=== PATIENT | male | born 1935 | race African-American/Black ===

== ENCOUNTER → 2016-08-08 | Outpatient (CLI) | payer OTHER ==
[2016-01-01 03:17] VITALS: BP 171/77
[~2016-08-08] MED LIST: BP MED; DIABETES MED; [UNRECOGNIZED DRUG - REMARK]
--- NOTE | 2016-08-08 13:16 | KCIC ---
Examination: CT chest without contrast. HISTORY History of long-term tobacco use, weight loss COMPARISON None available. TECHNIQUE Axial images were performed without contrast. Coronal sagittal reformats were performed. Exposure: One or more of the following dose reduction technique were utilized for this examination: 1. Automated exposure control. 2.Adjustment of MA and /or KV according to patient size. 3. Use of iterative reconstruction technique. Findings : The visualized thyroid gland grossly appears unremarkable. Central airways are patent. Minimal pericardial effusion identified. The heart size is normal. Mild coronary artery calcifications identified. Moderate aortic atherosclerosis. Minimal prominent appearing mediastinal lymph nodes identified with the largest measuring 1.8 centimeters in the pretracheal region. Diffuse centrilobular emphysematous changes identified in the bilateral lungs. Small 4 millimeter pulmonary nodule identified in the right middle lobe of the lung. Linear atelectasis /scarring changes identified in the bibasilar lungs. Moderate degenerative changes identified in the visualized thoracolumbar spine. The visualized non contrasted liver, spleen, adrenals grossly appears unremarkable. Partially visualized cystic structure identified in the midpole of the right kidney measuring 1.6 centimeters is difficult to characterize on this examination. IMPRESSION 1. Diffuse bilateral emphysematous changes identified in the lungs. 2. 4 millimeter pulmonary nodule identified in right middle lobe of the lung. Followup per Fleischner society guidelines. 3. Few prominent mediastinal lymph nodes identified, nonspecific. 4. Minimal pericardial effusion. Electronically signed by: Magdiel Spain (Aug 08, 2016 13:15:04)
== END | disposition home or self-care (01) ==
LOC: KCIC CT 11:42
PROVIDERS: ATTEND Family Medicine
DX: R63.4 Abnormal weight loss (principal); Z87.891 Personal history of nicotine dependence; J43.2 Centrilobular emphysema; R91.1 Solitary pulmonary nodule; R59.0 Localized enlarged lymph nodes; I31.3 Pericardial effusion (noninflammatory)
CPT/HCPCS: 71250

== ENCOUNTER 2017-09-17 12:32 | Emergency (ER) | payer OTHER ==
[2017-09-17] MEDS ORDERED: OXYMETAZOLINE 0.05% NASAL SPRAY 30ML BOTTLE. NS (12:47)
[2017-09-17] MEDS: OXYMETAZOLINE 0.05% NASAL SPRAY 30ML BOTTLE. NS (12:55)
[2017-09-17 13:32] LABS: ADD MAN DIFF? NO
[2017-09-17 13:36] LABS: BASO # 0.1 x10^3/uL (0.0-0.2); BASO % 1 % (0-3); EOS # 0.1 x10^3/uL (0.0-0.7); EOS % 2 % (0-3); HEMATOCRIT 36.8 % (39.0-53.0); HEMOGLOBIN 12.7 g/dL (13.0-17.5); LYMPH # 1.2 x10^3/uL (1.0-4.8); LYMPH % 16 % (24-48); MEAN CORPUSCULAR HEMOGLOBIN 31 pg (25-35); MEAN CORPUSCULAR HGB CONC 35 g/dL (31-37); MEAN CORPUSCULAR VOLUME 89 fL (79-100); MONO # 0.5 x10^3/uL (0.0-1.1); MONO % 7 % (0-9); NEUT # 5.6 x10^3uL (1.8-7.7); NEUT % 75 % (31-73); PLATELET COUNT 269 x10^3/uL (140-400); RED BLOOD COUNT 4.14 x10^6/uL (4.30-5.70); RED CELL DISTRIBUTION WIDTH 14.7 % (11.5-14.5); WHITE BLOOD COUNT 7.5 x10^3/uL (4.0-11.0)
[2017-09-17 13:43] LABS: INR 1.1 (0.8-1.1); PROTHROMBIN TIME PATIENT 13.2 SEC (11.7-14.0)
[2017-09-17 13:56] LABS: ANION GAP 6 (6-14); BLOOD UREA NITROGEN 14 mg/dL (8-26); CALCIUM 9.3 mg/dL (8.5-10.1); CARBON DIOXIDE 30 mmol/L (21-32); CHLORIDE 100 mmol/L (98-107); CREATININE 1.1 mg/dL (0.7-1.3); GFR 77.4; GLUCOSE 143 mg/dL (70-99); POTASSIUM 3.5 mmol/L (3.5-5.1); SODIUM 136 mmol/L (136-145)
== END 2017-09-17 15:00 | disposition home or self-care (01) ==
LOC: ER 12:32
DX: R04.0 Epistaxis (principal); I10 Essential (primary) hypertension; E11.9 Type 2 diabetes mellitus without complications
CPT/HCPCS: 30901; 36415; 80048; 85025; 85610; 99284-25

== ENCOUNTER 2017-09-18 06:36 | Emergency (ER) | payer OTHER | END 2017-09-18 07:47 | disposition home or self-care (01) | LOC: ER 06:36 | DX: J34.89 Other specified disorders of nose and nasal sinuses (principal); E11.9 Type 2 diabetes mellitus without complications; I10 Essential (primary) hypertension | CPT/HCPCS: 99283 ==

== ENCOUNTER 2017-09-19 19:27 | Emergency (ER) | payer OTHER ==
[2017-09-19] MEDS: TRANEXAMIC ACID 1,000 MG/10 ML VIAL. TOP (19:53)
[2017-09-19] MEDS: OXYMETAZOLINE 0.05% NASAL SPRAY 30ML BOTTLE. NS (19:53)
[2017-09-19] MEDS: LIDOCAINE 2%/EPI 1:100,000 20 ML VIAL. IJ (19:53)
[2017-09-19] MEDS: SILVER NITRATE STICK TP (20:21)
[2017-09-19] MEDS: NEOMY/BACITR/POLYMYXIN OINT PACKET. TP (20:46)
== END 2017-09-19 20:50 | disposition home or self-care (01) ==
LOC: ER 19:27
DX: R04.0 Epistaxis (principal); Z96.652 Presence of left artificial knee joint
CPT/HCPCS: 30901; 99284; J3490

== ENCOUNTER → 2017-10-03 | Outpatient (CLI) | payer OTHER | END | disposition home or self-care (01) | LOC: KCIC CT 12:28 | DX: J43.9 Emphysema, unspecified (principal); M47.894 Other spondylosis, thoracic region; R59.0 Localized enlarged lymph nodes; Z87.891 Personal history of nicotine dependence | CPT/HCPCS: 71250 ==

== ENCOUNTER → 2017-11-13 | Outpatient (CLI) | payer OTHER | END | disposition home or self-care (01) | LOC: PETSC 15:05 | DX: J43.9 Emphysema, unspecified (principal); I10 Essential (primary) hypertension; E11.9 Type 2 diabetes mellitus without complications; Z87.891 Personal history of nicotine dependence | CPT/HCPCS: 78815; A9552 ==

== ENCOUNTER → 2018-10-05 | Outpatient (CLI) | payer OTHER ==
[2017-09-19 20:20] VITALS: BP 147/70
[~2018-10-05] MED LIST changes: +CEPH-264 PO
--- NOTE | 2018-10-05 11:38 | KCIC ---
PQRS Compliance statement: One or more of the following individualized dose reduction techniques were utilized for this examination: 1. Automated exposure control. 2. Adjustment of the mA and/or kV according to patient size. 3. Use of iterative reconstruction technique. Indication:Lung nodule follow-up. Past Smoker. TECHNIQUE: CT chest without IV contrast with multiplanar reformats. COMPARISON: 10/03/2017 FINDINGS: Heart is normal in size. No pericardial or pleural effusion. No enlarged axillary adenopathy. Evaluation of hilar lymphadenopathy is limited due to lack of IV contrast. Mildly enlarged mediastinal lymph nodes noted, the largest measuring 1.9 x 1.3 cm, previously 1.8 x 1.3 cm. Subcarinal lymph node measures 3.1 x 1.4 similar, previously 2.5 x 1.4 cm. Moderate diffuse emphysema. Stable 3 mm nodule in the right lung apex (series 2 image 31). Stable 2 mm nodular opacity in the right middle lobe (series 2 image 158) . Right lower lobe pleural thickening is seen with scarring in the right lung base. New 7 mm nodular opacity in the central right upper lobe (series 2 image 89). Scarring or subsegmental atelectasis is seen in the lingula. Visualized noncontrast sections through the liver, spleen, pancreas, adrenals within normal limits. Diffusely patulous esophagus is seen. No suspicious bony lesion. IMPRESSION: 1. Stable previously seen nodules. New right upper lobe nodules/nodular opacity (7 mm). Follow-up CT chest in 4-6 months recommended. 2. Moderate emphysema. 3. Mediastinal lymph nodes with changes in size as described above likely reactive. Attention on follow-up. Electronically signed by: Dennis Allen DO (10/05/2018 11:35 AM) [facility]
== END | disposition home or self-care (01) ==
LOC: KCIC CT 10:15
PROVIDERS: ATTEND Family Medicine
DX: R91.1 Solitary pulmonary nodule (principal); J43.9 Emphysema, unspecified; R59.0 Localized enlarged lymph nodes; R91.8 Other nonspecific abnormal finding of lung field; Z72.0 Tobacco use
CPT/HCPCS: 71250

== ENCOUNTER → 2018-12-31 | Outpatient (CLI) | payer OTHER ==
[2017-09-19 20:20] VITALS: BP 147/70
[~2018-12-31] MED LIST changes: +IOHEXOL 240 MG/ML 50ML VIAL. PO ONE; +IOHEXOL 300 MG/ML 100ML VIAL. IV ONE
--- NOTE | 2019-01-01 08:25 | KCIC ---
CT of the abdomen and pelvis with contrast, 12/31/2018: HISTORY: Abdominal pain and weight loss Multidetector CT imaging was performed following oral and IV administration of contrast. Comparison is made to a study from 05/22/2015. The visualized portions of the lung bases demonstrate emphysematous changes with mild bronchiectasis and parenchymal scarring. There is pleural thickening posteriorly on the right with a probable trace amount of right-sided pleural fluid. These right posterior basilar pleural-parenchymal opacities have progressed slightly since 10/06/2018. There are couple of very tiny subcentimeter low-density lesions in the liver, best seen in the right lobe on images 23, 22 and 25 of series #2. These are too small to definitively characterize. There are not visible on the previous study, however, that may be on a technical basis. The liver is otherwise unremarkable. No gallbladder abnormality is seen. The pancreas shows no abnormality. The spleen is within normal limits in size. There are small bilateral renal cysts. The largest of these lies posteriorly on the right and measures 3 cm. The kidneys show no evidence of obstruction. No adrenal abnormality is detected. There is moderate aortic calcific plaquing without evidence of aneurysm. No abdominal or pelvic adenopathy is seen. The prostate gland is within normal limits in size. There is mild diffuse bladder wall thickening. The bowel loops are not dilated. No free fluid or free air is evident in the abdomen or pelvis. There is extensive hypertrophic degenerative change in the spine with bony bridging at multiple levels. There is a laminectomy defect in the lower lumbar spine. IMPRESSION: 1. Several tiny subcentimeter low-density lesions are now evident in the liver, too small to definitively characterize. Follow-up imaging is suggested to exclude a neoplastic etiology. 2. Mild diffuse bladder wall thickening raising the possibility of chronic bladder outlet obstruction versus cystitis. 3. Bilateral renal cysts. 4. Emphysema with bibasilar scarring, mild bronchiectasis and slight interval worsening of the right posterior basilar pleural-parenchymal opacities. PQRS Compliance Statement: One or more of the following individualized dose reduction techniques were utilized for this examination: 1. Automated exposure control 2. Adjustment of the mA and/or kV according to patient size 3. Use of iterative reconstruction technique Electronically signed by: Del Garcia MD (01/01/2019 8:22 AM) [facility]
== END | disposition home or self-care (01) ==
LOC: KCIC CT 11:38
PROVIDERS: ATTEND Family Medicine
DX: J47.9 Bronchiectasis, uncomplicated (principal); J43.8 Other emphysema; J98.4 Other disorders of lung; J92.9 Pleural plaque without asbestos; K76.9 Liver disease, unspecified; N28.1 Cyst of kidney, acquired
CPT/HCPCS: 74177; Q9966; Q9967

== ENCOUNTER → 2019-02-22 | Day surgery (SDC) | payer OTHER ==
[~2019-02-22] MED LIST changes: +ASPI81TA59 PO; +DICY10CA3 PO; -IOHEXOL 240 MG/ML 50ML VIAL. PO ONE; -IOHEXOL 300 MG/ML 100ML VIAL. IV ONE; +IV RINGERS,LACTATED 1000ML 1,000 ML IV SCH; +LIDOCAINE 2% PF 5 ML VIAL. ONE; +LOSA1TAB19 PO; +PROPOFOL 20 ML IV ONE
--- NOTE | 2019-02-22 14:54 | PDOC4 ---
PROCEDURE Procedure EGD/biopsies Indication: Upper abdominal pain, N, V Meds: per anesthesia Findings: E--Grade A esophagitis at 42cm. G--Multiple small pre-pyloric erosions, antral biopsies. D--Erosions, erythema, bulb. Deformity in distal bulb c/w prior ulcers. Second portion normal. Juan José. well. IMP: GERD Gastric/duodenal erosions Duodenal deformity. REC: Await biopsies. PPI Resume other meds, diet. F/u in 2 weeks. AYUSH CARTAGENA MD Feb 22, 2019 14:54
[2019-02-22 15:10] VITALS: BP 179/74
--- NOTE | 2019-02-24 16:17 | PATHOLOGY ---
[facility] Accession Number: [id number] . 01 Material submitted: . stomach - ANTRUM BIOPSY . 01 Clinical history: . Dyspepsia . 02 Diagnosis: Gastric biopsy, antrum: - Chronic gastritis, mild to moderate. ([facility] 02/25/2019) [facility]/02/24/2019 . 02 Comment: Sections of the gastric biopsy reveal segments of gastric antral and antral/body transition mucosa showing congestion and mild to moderate chronic inflammation. A properly controlled immunoperoxidase stain for Helicobacter is negative for Helicobacter organisms. ([facility] 02/25/2019) . Special stain performed: Immunoperoxidase for Helicobacter . 02 Electronically signed: . Aakash Brown MD, Pathologist NPI- [id number] . 01 Gross description: . Received in formalin labeled "Walker, Emigdio, antrum BX," is a single segment of george soft tissue measuring 0.6 cm in maximum dimension. The specimen is entirely submitted in cassette A1. ([facility]; 02/23/2019) TOB/TOB . 02 Pathologist provided ICD-10: K29.50 . 02 CPT . 000365, [id number] Specimen Comment: A courtesy copy of this report has been sent to Specimen Comment: [phone], . Specimen Comment: Report sent to / DR CASIANO Performed at: 01 [facility] [address] [place] [address], [place] [id number] MD Missael Parker MD Phone: [phone] Performed at: 02 [facility] [address], [place] [id number] MD Aakash Brown MD Phone: [phone]
== END ==
LOC: SURG 13:38
PROVIDERS: ATTEND Internal Medicine Gastroenterology
DX: K29.50 Unspecified chronic gastritis without bleeding (principal); K21.0 Gastro-esophageal reflux disease with esophagitis; K31.9 Disease of stomach and duodenum, unspecified; K26.9 Duodenal ulcer, unspecified as acute or chronic, without hemorrhage or perforation; F15.90 Other stimulant use, unspecified, uncomplicated; Z72.89 Other problems related to lifestyle; Z79.82 Long term (current) use of aspirin; Z87.891 Personal history of nicotine dependence
CPT/HCPCS: 43239; J2001; J2704

== ENCOUNTER → 2019-03-30 | Outpatient (CLI) | payer OTHER ==
[2019-02-22 15:10] VITALS: BP 179/74
[~2019-03-30] MED LIST changes: +ASPI-630 PO; +IOHEXOL 240 MG/ML 50ML VIAL. PO ONE; +IOHEXOL 300 MG/ML 100ML VIAL. IV ONE; -IV RINGERS,LACTATED 1000ML 1,000 ML IV SCH; -LIDOCAINE 2% PF 5 ML VIAL. ONE; +NITR0.4T22 SL; -PROPOFOL 20 ML IV ONE
--- NOTE | 2019-03-30 16:52 | KCIC ---
CT chest without contrast; CT abdomen pelvis with contrast Indication: Lung nodule, previous smoker; weight loss and abdominal pain, generalized pain, "gassy" feeling Technique: Noncontrast CT imaging was performed of the chest, multiplanar reconstruction images submitted. Postcontrast CT imaging was performed of the abdomen and pelvis, multiplanar reconstruction images submitted. Oral contrast was also given. One or more of the following individualized dose reduction techniques were utilized for this examination: 1. Automated exposure control 2. Adjustment of the mA and/or kV according to patient size 3. Use of iterative reconstruction technique. Comparison: December 31, 2018 CT abdomen pelvis exam; October 05, [address] exam; older chest CT available July 05, 2008 CHEST: FINDINGS: There is again fairly severe emphysema with upper zone predominance. Small right pleural effusion with adjacent mild pleural thickening is similar. There is no pneumothorax or new left pleural fluid. There is mild coronary calcification. Thoracic aortic caliber is within normal limits. There is mediastinal nodes, largest precarinal node about 1.2 cm short axis dimension overall similar in morphology and size. Subcarinal node about 1.4 cm short axis dimension is similar. Tiny 0.2 cm right middle lobe nodule image 12 series 6 is stable. Small 0.3 cm right middle lobe nodule image 47 series 6 is similar. Previously seen right upper lobe nodule which was new previously has resolved. There is mild thickening along the major fissures, likely component of mild atelectasis. No new suspicious pulmonary nodularity is identified. There is degenerative change of bilateral shoulders. IMPRESSION: 1. Previously seen right upper lobe pulmonary nodule has resolved, no new suspicious pulmonary nodularity, other small nodules stable. There is again emphysema with upper zone predominance. There is similar degree of mild pleural thickening and fluid of the posterior right hemithorax. Nonspecific mediastinal lymphadenopathy is stable. Abdomen pelvis: Findings: There is again hypodense lesion of the right kidney posteriorly with density measurements of a cyst 2 Hounsfield units, up to about 3.9 cm CC dimension. There is also small hypodense lesion of the anterior right kidney somewhat less apparent on this exam otherwise difficult to accurately characterize. Both kidneys enhance. There is similar degree of mild renal pelviectasis/extrarenal pelves greater on the right. There is again small hypodense lesion of the superior left kidney about 1.2 cm with density measurements of a cyst. There is no adrenal nodularity. A couple of previously suggested tiny hypodense foci of the right lobe liver are unchanged to less perceptible on this exam, on the order of 0.2 to 0.3 cm in size as seen on images 17 and 18 on today's exam series 3. No new focal abnormality is identified of the liver, spleen, pancreas. There is again visualization of the pancreatic duct. Gallbladder is present without obvious intraluminal abnormality by CT. There is density displacing adjacent contrast near the suspected ampulla in the left lateral aspect of the descending duodenum image 32 about 0.9 cm in size, no oral contrast on previous exam. Bowel is not significantly dilated. There is no free fluid or free air. Appendix caliber is upper limits of normal 0.6 cm without adjacent inflammatory change, some internal gas present. No significant inflammatory type change is seen about the bowel. There is multilevel lumbar facet degenerative change. 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 There has been posterior decompression of the inferior lumbar spine. There is some variable multilevel lumbar neural foramina compromise. IMPRESSION: 1. No significant inflammatory type change is identified about the bowel, no CT evidence of acute appendicitis. 2. There is appearance of density displacing adjacent contrast, protruding into the medial aspect of the descending duodenum near expected ampulla. There is no significant biliary ductal dilatation. However small mass in this region is not excludable better evaluated by endoscopy or MRCP. 3. There are again bilateral renal cysts. 4. Previously suggested tiny hypodense foci of the liver are similar to less perceptible on this exam, too small to accurately characterize. Electronically signed by: Oswaldo Beard MD (03/30/2019 4:49 PM) [facility]
== END | disposition home or self-care (01) ==
LOC: KCIC CT 08:30
PROVIDERS: ATTEND Internal Medicine Critical Care Medicine
DX: J43.9 Emphysema, unspecified (principal); J90 Pleural effusion, not elsewhere classified; I25.10 Atherosclerotic heart disease of native coronary artery without angina pectoris; R91.8 Other nonspecific abnormal finding of lung field; N28.1 Cyst of kidney, acquired; R59.0 Localized enlarged lymph nodes; N28.9 Disorder of kidney and ureter, unspecified; Z87.891 Personal history of nicotine dependence
CPT/HCPCS: 71250

== ENCOUNTER → 2019-03-30 | Outpatient (CLI) | payer OTHER ==
[2019-02-22 15:10] VITALS: BP 179/74
--- NOTE | 2019-03-30 16:52 | KCIC ---
CT chest without contrast; CT abdomen pelvis with contrast Indication: Lung nodule, previous smoker; weight loss and abdominal pain, generalized pain, "gassy" feeling Technique: Noncontrast CT imaging was performed of the chest, multiplanar reconstruction images submitted. Postcontrast CT imaging was performed of the abdomen and pelvis, multiplanar reconstruction images submitted. Oral contrast was also given. One or more of the following individualized dose reduction techniques were utilized for this examination: 1. Automated exposure control 2. Adjustment of the mA and/or kV according to patient size 3. Use of iterative reconstruction technique. Comparison: December 31, 2018 CT abdomen pelvis exam; October 05, [address] exam; older chest CT available July 05, 2008 CHEST: FINDINGS: There is again fairly severe emphysema with upper zone predominance. Small right pleural effusion with adjacent mild pleural thickening is similar. There is no pneumothorax or new left pleural fluid. There is mild coronary calcification. Thoracic aortic caliber is within normal limits. There is mediastinal nodes, largest precarinal node about 1.2 cm short axis dimension overall similar in morphology and size. Subcarinal node about 1.4 cm short axis dimension is similar. Tiny 0.2 cm right middle lobe nodule image 12 series 6 is stable. Small 0.3 cm right middle lobe nodule image 47 series 6 is similar. Previously seen right upper lobe nodule which was new previously has resolved. There is mild thickening along the major fissures, likely component of mild atelectasis. No new suspicious pulmonary nodularity is identified. There is degenerative change of bilateral shoulders. IMPRESSION: 1. Previously seen right upper lobe pulmonary nodule has resolved, no new suspicious pulmonary nodularity, other small nodules stable. There is again emphysema with upper zone predominance. There is similar degree of mild pleural thickening and fluid of the posterior right hemithorax. Nonspecific mediastinal lymphadenopathy is stable. Abdomen pelvis: Findings: There is again hypodense lesion of the right kidney posteriorly with density measurements of a cyst 2 Hounsfield units, up to about 3.9 cm CC dimension. There is also small hypodense lesion of the anterior right kidney somewhat less apparent on this exam otherwise difficult to accurately characterize. Both kidneys enhance. There is similar degree of mild renal pelviectasis/extrarenal pelves greater on the right. There is again small hypodense lesion of the superior left kidney about 1.2 cm with density measurements of a cyst. There is no adrenal nodularity. A couple of previously suggested tiny hypodense foci of the right lobe liver are unchanged to less perceptible on this exam, on the order of 0.2 to 0.3 cm in size as seen on images 17 and 18 on today's exam series 3. No new focal abnormality is identified of the liver, spleen, pancreas. There is again visualization of the pancreatic duct. Gallbladder is present without obvious intraluminal abnormality by CT. There is density displacing adjacent contrast near the suspected ampulla in the left lateral aspect of the descending duodenum image 32 about 0.9 cm in size, no oral contrast on previous exam. Bowel is not significantly dilated. There is no free fluid or free air. Appendix caliber is upper limits of normal 0.6 cm without adjacent inflammatory change, some internal gas present. No significant inflammatory type change is seen about the bowel. There is multilevel lumbar facet degenerative change. 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 There has been posterior decompression of the inferior lumbar spine. There is some variable multilevel lumbar neural foramina compromise. IMPRESSION: 1. No significant inflammatory type change is identified about the bowel, no CT evidence of acute appendicitis. 2. There is appearance of density displacing adjacent contrast, protruding into the medial aspect of the descending duodenum near expected ampulla. There is no significant biliary ductal dilatation. However small mass in this region is not excludable better evaluated by endoscopy or MRCP. 3. There are again bilateral renal cysts. 4. Previously suggested tiny hypodense foci of the liver are similar to less perceptible on this exam, too small to accurately characterize. Electronically signed by: Oswaldo Beard MD (03/30/2019 4:49 PM) [facility]-KCIC[facility]
== END | disposition home or self-care (01) ==
LOC: KCIC CT 08:35
PROVIDERS: ATTEND Family Medicine
DX: N20.0 Calculus of kidney (principal); J43.9 Emphysema, unspecified; J90 Pleural effusion, not elsewhere classified; I25.10 Atherosclerotic heart disease of native coronary artery without angina pectoris; R91.8 Other nonspecific abnormal finding of lung field; Z87.891 Personal history of nicotine dependence
CPT/HCPCS: 74177; 82565; Q9966; Q9967

== ENCOUNTER → 2019-04-12 | Day surgery (SDC) | payer OTHER ==
[~2019-04-12] MED LIST changes: +HYDROmorphone 2 MG/ML VIAL IV PRN; -IOHEXOL 240 MG/ML 50ML VIAL. PO ONE; -IOHEXOL 300 MG/ML 100ML VIAL. IV ONE; +IV RINGERS,LACTATED 1000ML 1,000 ML IV SCH; +LIDOCAINE 1% PF 2 ML VIAL. ID PRN; +MORPHINE SULFATE 2 MG/ML VIAL. IV PRN; +ONDANSETRON PF 4 MG/2 ML VIAL. IV PRN; +PROCHLORPERAZINE 10 MG/2 ML VIAL. IV PRN; +PROPOFOL 20 ML IV ONE; +fentaNYL PF VIAL 100 MCG/2 ML VIAL IV PRN
--- NOTE | 2019-04-12 15:31 | PDOC4 ---
PROCEDURE Procedure EGD/biopsy Indication: abnormal CT; query abnormality in duodenum. Meds: per anesthesia Findings: E--healed reflux at [facility]. G--Normal D--prominent papilla, otherwise normal; one biopsy taken to document normal. Juan José. well. IMP: Prominent major papilla; likely accounts for the CT finding. Did not appear adenomatous. Healed reflux. REC: Await biopsy. Continue meds and diet as before. F/u with me in 2 weeks. AYUSH CARTAEGNA MD Apr 12, 2019 15:31
[2019-04-12 16:02] VITALS: BP 127/59
== END ==
LOC: ENDOS 13:18
PROVIDERS: ATTEND Internal Medicine Gastroenterology
DX: K21.0 Gastro-esophageal reflux disease with esophagitis (principal); F15.90 Other stimulant use, unspecified, uncomplicated; Z72.89 Other problems related to lifestyle; Z87.891 Personal history of nicotine dependence; Z79.82 Long term (current) use of aspirin; Z96.60 Presence of unspecified orthopedic joint implant
CPT/HCPCS: 43239; 88305; J2704

== ENCOUNTER → 2020-04-06 | Outpatient (CLI) | payer MEDICARE, OTHER ==
[2019-04-12 16:02] VITALS: BP 127/59
[~2020-04-06] MED LIST changes: +CONTRAST GIVEN. MC PRN; -HYDROmorphone 2 MG/ML VIAL IV PRN; +IOHEXOL 240 MG/ML 50ML VIAL. PO ONE; +IOHEXOL 300 MG/ML 100ML VIAL. IV ONE; -IV RINGERS,LACTATED 1000ML 1,000 ML IV SCH; -LIDOCAINE 1% PF 2 ML VIAL. ID PRN; -MORPHINE SULFATE 2 MG/ML VIAL. IV PRN; -ONDANSETRON PF 4 MG/2 ML VIAL. IV PRN; -PROCHLORPERAZINE 10 MG/2 ML VIAL. IV PRN; -PROPOFOL 20 ML IV ONE; +TAMS0.4C97 PO; +[UNRECOGNIZED DRUG - CODE] MC; -fentaNYL PF VIAL 100 MCG/2 ML VIAL IV PRN
--- NOTE | 2020-04-06 19:37 | KCIC ---
EXAM: CT ABDOMEN/PELVIS WITH CONTRAST. HISTORY: Abdominal pain, weight loss. TECHNIQUE: Computed tomography of the abdomen and pelvis was performed after the intravenous administration of iodinated contrast. One or more of the following individualized dose reduction techniques were utilized for this examination: 1. Automated exposure control. 2. Adjustment of the mA and/or kV according to patient size. 3. Use of iterative reconstruction technique. COMPARISON: 03/30/2019. FINDINGS: Lung windows through the visualized portions of the bases reveal moderate centrilobular emphysema. There is bronchial wall thickening and mild bronchiectasis throughout the bases. There is a trace right pleural effusion. Bone windows reveal no suspicious lesions. There is ankylosis throughout the lower thoracic and lumbar spine. The sacroiliac joints are not ankylosed. The liver, gallbladder, adrenal glands and spleen are unremarkable. Right renal cysts measure up to 3.2 x 2.5 cm. Another at the left upper pole measures 1 cm. No pancreatic parenchymal mass is identified. There is a polypoid nodule in the region of the major papillae as seen on axial image 33 measuring 1.0 cm, versus volume averaging artifact. There is no vascular encasement or surrounding lymphadenopathy. The common duct is not dilated. There are no pathologically enlarged lymph nodes. There is moderate diffuse bladder wall thickening. The appendix is not inflamed. There is no small bowel obstruction. The stomach is unremarkable by CT. IMPRESSION: 1. 1 cm polypoid nodule in the region of the major papilla versus volume averaging artifact. ERCP could further exclude an ampullary lesion. No other pancreatic lesion is identified. No ductal dilatation. 2. At least moderate centrilobular emphysema. Bibasilar bronchiectasis. Correlate for chronic aspiration or other inflammatory etiologies. 3. Nonfocal bladder wall thickening suggests chronic outlet obstruction or inflammation. Electronically signed by: Frank Blankenship MD (04/06/2020 7:35 PM) [facility]
== END | disposition home or self-care (01) ==
LOC: KCIC CT 13:23
PROVIDERS: ATTEND Internal Medicine
DX: J43.2 Centrilobular emphysema (principal); N28.1 Cyst of kidney, acquired; J47.9 Bronchiectasis, uncomplicated; M43.25 Fusion of spine, thoracolumbar region
CPT/HCPCS: 74177; 82565; Q9966; Q9967

== ENCOUNTER 2020-04-29 10:47 | Emergency (ER) | payer MEDICARE, OTHER ==
[~2020-04-29] VITALS: Ht 182.9 cm; Wt 93.0 kg
[~2020-04-29 10:47] MED LIST changes: -CONTRAST GIVEN. MC PRN; -IOHEXOL 240 MG/ML 50ML VIAL. PO ONE; -IOHEXOL 300 MG/ML 100ML VIAL. IV ONE
[2020-04-29 11:00] VITALS: BP 148/66
[2020-04-29] MEDS ORDERED: OXYMETAZOLINE 0.05% NASAL SPRAY 30ML BOTTLE. NS ONE (11:00)
[2020-04-29] MEDS ORDERED: TRANEXAMIC ACID 1,000 MG/10 ML VIAL. TOP ONE (11:00)
[2020-04-29] MEDS ORDERED: ONDANSETRON ODT 4 MG TAB.RAPDIS. ONE (11:08)
[2020-04-29] MEDS ORDERED: ONDANSETRON ODT 4 MG TAB.RAPDIS. PO ONE (11:15)
--- NOTE | 2020-04-29 12:20 | PHYS DOC ---
Past Medical History Past Medical History: Diabetes-Type II, Hypertension Additional Past Medical Histor: NASAL BLEED (08/2017) Past Surgical History: Knee Replacement, Tonsillectomy, Other Additional Past Surgical Histo: L knee Smoking Status: Never Smoker Alcohol Use: None Drug Use: None General Adult EDM: Chief Complaint: NOSEBLEED HPI: HPI: History obtained for the patient. Patient is a 84-year-old male past medical history of hypertension and ubk-[id number] diabetes who presents with chief complaint of nosebleed. He states bleeding began 1 hour ago. He thinks it is coming from his right nostril. Denies any history of nosebleed. Does not take blood thinners. Denies falls or trauma. Denies any additional trauma. Denies any difficulty breathing. Denies any vomiting. No other complaints. Review of Systems: Review of Systems: Constitutional: Denies fever or chills. [] Eyes: Denies change in visual acuity. [] HENT: Positive for epistaxsis Respiratory: Denies cough or shortness of breath. [] Cardiovascular: Denies chest pain or edema. [] GI: Denies abdominal pain, nausea, vomiting, bloody stools or diarrhea. [] : Denies dysuria. [] Musculoskeletal: Denies back pain or joint pain. [] Integument: Denies rash. [] Neurologic: Denies headache, focal weakness or sensory changes. [] Endocrine: Denies polyuria or polydipsia. [] Lymphatic: Denies swollen glands. [] Psychiatric: Denies depression or anxiety. [] Heart Score: Risk Factors: Risk Factors: DM, Current or recent (<one month) smoker, HTN, HLP, family history of CAD, obesity. Risk Scores: Score 0 - 3: 2.5% MACE over next 6 weeks - Discharge Home Score 4 - 6: 20.3% MACE over next 6 weeks - Admit for Clinical Observation Score 7 - 10: 72.7% MACE over next 6 weeks - Early Invasive Strategies Current Medications: Current Medications Medications (Trade) Dose Ordered Sig/Janessa Start Time Stop Time Status Last Admin Dose Admin Ondansetron HCl (Zofran Odt) 4 mg 1X ONCE 04/29/20 11:15 04/29/20 11:16 DC 04/29/20 11:11 4 MG Oxymetazoline HCl (Afrin) 2 spray 1X ONCE 04/29/20 11:00 04/29/20 11:01 DC 04/29/20 11:02 2 SPRAY Tranexamic Acid (Cyklokapron) 1,000 mg 1X ONCE 04/29/20 11:00 04/29/20 11:01 DC 04/29/20 11:02 1,000 MG Allergies: Allergies: Allergies Coded Allergies Type Severity Reaction Last Updated Verified No Known Drug Allergies 04/12/19 No Physical Exam: PE: Constitutional: Well developed, well nourished, no acute distress, non-toxic appearance. [] HENT: Minimal bloody drainage in the posterior oropharynx. Unable to visualize any anterior bleeding. Eyes: PERRLA, EOMI, conjunctiva normal, no discharge. [] Neck: Normal range of motion, no tenderness, supple, no stridor. [] Cardiovascular:Heart rate regular rhythm, no murmur [] Lungs & Thorax: Bilateral breath sounds clear to auscultation [] Abdomen: Bowel sounds normal, soft, no tenderness, no masses, no pulsatile masses. [] Skin: Warm, dry, no erythema, no rash. [] Back: No tenderness, no CVA tenderness. [] Extremities: No tenderness, no cyanosis, no clubbing, ROM intact, no edema. [] Neurologic: Alert and oriented X 3, normal motor function, normal sensory function, no focal deficits noted. [] Psychologic: Affect normal, judgement normal, mood normal. [] Current Patient Data: Vital Signs: Vital Signs Date Time Temp Pulse Resp B/P (MAP) Pulse Ox O2 Delivery O2 Flow Rate FiO2 04/29/20 11:00 98.0 59 16 148/66 (93) 95 Room Air 98.0 EKG: EKG: [] Radiology/Procedures: Radiology/Procedures: [] Course & Med Decision Making: Course & Med Decision Making Pertinent Labs and Imaging studies reviewed. (See chart for details) [] Patient is an 84-year-old male who presents with chief complaint of nosebleed. He states it started 1 hour prior to arrival spontaneously. Does not take blood thinners. Upon initial inspection patient does have a mild amount of right nasal bleeding. No source of bleeding can be visualized. Patient was initially given Afrin cotton pledgets. Direct pressure was held for 20 minutes. Repeat assessment he still had some posterior oropharynx bloody drainage. Additional TXA soaked cotton pledgets were administered to the right nares. Direct pressure was applied for 20 to 30 minutes. On repeat assessment he never has any bleeding. The back of his throat is clear without bloody drainage. He was monitored without intervention for quite some time. He showed no signs of repeat bleeding. I do feel he is appropriate for discharge home. Return precautions discussed and understood. Stable for discharge. Dragon Disclaimer: Dragon Disclaimer: This electronic medical record was generated, in whole or in part, using a voice recognition dictation system. Departure Departure Impression: Primary Impression: Epistaxis Disposition: 01 DC HOME SELF CARE/HOMELESS Condition: STABLE Referrals: DARIEN CASIANO (PCP) Patient Instructions: Nosebleed Additional Instructions: Please follow-up with your primary care physician in the next 2 to 3 days. CRISTIAN WILKINS DO Apr 29, 2020 12:19
== END 2020-04-29 12:30 | disposition home or self-care (01) ==
LOC: ER 10:47
DX: R04.0 Epistaxis (principal); E11.9 Type 2 diabetes mellitus without complications; I10 Essential (primary) hypertension; Z98.890 Other specified postprocedural states; Z90.89 Acquired absence of other organs
CPT/HCPCS: 99284; J3490

== ENCOUNTER 2020-05-05 09:46 | Emergency (ER) | payer MEDICARE, OTHER ==
[~2020-05-05] VITALS: Ht 182.9 cm; Wt 93.0 kg
[2020-05-05 10:23] VITALS: BP 153/70
[2020-05-05] MEDS ORDERED: OXYMETAZOLINE 0.05% NASAL SPRAY 30ML BOTTLE. NS ONE (10:30)
--- NOTE | 2020-05-05 11:04 | PHYS DOC ---
Past Medical History Past Medical History: Diabetes-Type II, Hypertension Additional Past Medical Histor: NASAL BLEED (08/2017) Past Surgical History: Knee Replacement, Tonsillectomy, Other Additional Past Surgical Histo: L knee Smoking Status: Never Smoker Alcohol Use: None Drug Use: None General Adult EDM: Chief Complaint: NOSEBLEED HPI: HPI: Patient is a 64-year-old male who presents to the emergency room complaining of epistaxis from the right nare. This is his third nosebleed in the last week. He states the swelling started about an hour and half prior to arrival and is slowing down but he continues to feel it in the back of his throat. He denies any blood thinners. He does not have hypertension. He did have cauterization done to a broken blood vessel in his nose the first time this happened. Review of Systems: Review of Systems: Negative other than marked Heart Score: Risk Factors: Risk Factors: DM, Current or recent (<one month) smoker, HTN, HLP, family history of CAD, obesity. Risk Scores: Score 0 - 3: 2.5% MACE over next 6 weeks - Discharge Home Score 4 - 6: 20.3% MACE over next 6 weeks - Admit for Clinical Observation Score 7 - 10: 72.7% MACE over next 6 weeks - Early Invasive Strategies Current Medications: Current Medications Medications (Trade) Dose Ordered Sig/Janessa Start Time Stop Time Status Last Admin Dose Admin Oxymetazoline HCl (Afrin) 2 spray 1X ONCE 05/05/20 10:30 05/05/20 10:31 DC 05/05/20 10:30 2 SPRAY Allergies: Allergies: Allergies Coded Allergies Type Severity Reaction Last Updated Verified No Known Drug Allergies 04/12/19 No Physical Exam: PE: General: Awake, alert, NAD. Well Nourished, well hydrated. Cooperative HEENT: Atraumatic, EOMI, PERRL, airway patent, moist oral mucosa, right nare with minimal bleeding, left nare appears normal Neck: Supple, trachea midline Respiratory: CTA bilaterally, normal effort, no wheezing/crackles CV: RRR, no murmur, cap refill <2 GI: Soft, nondistended, nontender, no masses MSK: No obvious deformities Skin: Warm, dry, intact Neuro: A&O x3, speech NL, sensory and motor grossly intact, no focal deficits Psych: Normal affect, normal mood, not suicidal or homicidal Current Patient Data: Vital Signs: Vital Signs Date Time Temp Pulse Resp B/P (MAP) Pulse Ox O2 Delivery O2 Flow Rate FiO2 05/05/20 10:23 97.8 58 18 153/70 (97) 97 Room Air 97.8 EKG: EKG: [] Radiology/Procedures: Radiology/Procedures: [] Course & Med Decision Making: Course & Med Decision Making Pertinent Labs and Imaging studies reviewed. (See chart for details) Patient is an 84-year-old male who presents to the emergency room with a nosebleed. I discussed doing conservative treatment such as Afrin and pressure with the patient versus doing nasal packing. Patient would like to do nasal packing. Packing was placed without difficulty. Bleeding stopped after packing. I have discussed with him that it will need to be removed on Friday or Friday. He will follow-up for removal. Patient's test results and vitals while in the ED were fully reviewed and discussed with the patient. Patient is stable and at this time does not need admission to the hospital. We have discussed strict return precautions and the importance of following up with their Primary Care Physician. Patient stated understanding and was given an opportunity to ask any questions. Patient is in agreement with plan. Thee Disclaimer: Thee Disclaimer: This electronic medical record was generated, in whole or in part, using a voice recognition dictation system. Departure Departure Impression: Primary Impression: Epistaxis Disposition: 01 DC HOME SELF CARE/HOMELESS Condition: IMPROVED Referrals: UNKNOWN PCP NAME (PCP) Patient Instructions: Nosebleed Additional Instructions: Nasal packing will need to be removed Friday JENNIFER ACUÑA MD May 05, 2020 11:04
== END 2020-05-05 11:14 | disposition home or self-care (01) ==
LOC: ER 09:46
DX: R04.0 Epistaxis (principal); E11.9 Type 2 diabetes mellitus without complications; I10 Essential (primary) hypertension
CPT/HCPCS: 99282

== ENCOUNTER 2020-05-08 09:13 | Emergency (ER) | payer MEDICARE, OTHER ==
[~2020-05-08] VITALS: Ht 182.9 cm; Wt 100.0 kg
[2020-05-08 09:23] VITALS: BP 153/70
--- NOTE | 2020-05-08 09:54 | ED.ADGEN ---
Past Medical History Past Medical History: Diabetes-Type II, Hypertension Additional Past Medical Histor: NASAL BLEED (08/2017) Past Surgical History: Knee Replacement, Tonsillectomy, Other Additional Past Surgical Histo: L knee Smoking Status: Never Smoker Alcohol Use: None Drug Use: None General Adult EDM: Chief Complaint: NOSEBLEED HPI: HPI: Patient is an 84-year-old male who presents to the emergency room to get nasal packing taken out of his nose. He was packed for an obese [place] on Friday. He has not had any problems. Review of Systems: Review of Systems: Negative Allergies: Allergies: Allergies Coded Allergies Type Severity Reaction Last Updated Verified No Known Drug Allergies 04/12/19 No Physical Exam: PE: General: Awake, alert, NAD. Well Nourished, well hydrated. Cooperative HEENT: Atraumatic, EOMI, PERRL, airway patent, moist oral mucosa, packing in right nare without bleeding Skin: Warm, dry, intact Neuro: A&O x3, speech NL, sensory and motor grossly intact, no focal deficits Psych: Normal affect, normal mood, not suicidal or homicidal Current Patient Data: Vital Signs: Vital Signs Date Time Temp Pulse Resp B/P (MAP) Pulse Ox O2 Delivery O2 Flow Rate FiO2 05/08/20 09:23 97.6 65 18 153/70 (97) 97 Room Air 97.6 EKG: EKG: [] Heart Score: Risk Factors: Risk Factors: DM, Current or recent (<one month) smoker, HTN, HLP, family history of CAD, obesity. Risk Scores: Score 0 - 3: 2.5% MACE over next 6 weeks - Discharge Home Score 4 - 6: 20.3% MACE over next 6 weeks - Admit for Clinical Observation Score 7 - 10: 72.7% MACE over next 6 weeks - Early Invasive Strategies Radiology/Procedures: Radiology/Procedures: [] Course & Med Decision Making: Course & Med Decision Making Pertinent Labs and Imaging studies reviewed. (See chart for details) [] Dragon Disclaimer: Dragon Disclaimer: This electronic medical record was generated, in whole or in part, using a voice recognition dictation system. Departure Departure Impression: Primary Impression: Encounter for removal of nasal packing Disposition: 01 DC HOME SELF CARE/HOMELESS Condition: STABLE Referrals: DARIEN CASIANO (PCP) Patient Instructions: JENNIFER Nugent MD 19, 2020 09:54
== END 2020-05-08 10:01 | disposition home or self-care (01) ==
LOC: ER 09:13
DX: R04.0 Epistaxis (principal); E11.9 Type 2 diabetes mellitus without complications; I10 Essential (primary) hypertension; E66.9 Obesity, unspecified; Z68.29 Body mass index [BMI] 29.0-29.9, adult; Z98.890 Other specified postprocedural states; Z90.89 Acquired absence of other organs
CPT/HCPCS: 99281

== ENCOUNTER 2021-04-20 14:40 | Emergency (ER) | payer MEDICARE, OTHER ==
[~2021-04-20] VITALS: Ht 175.3 cm; Wt 90.0 kg
[2021-04-20 15:03] VITALS: BP 136/63
[2021-04-20] MEDS ORDERED: BACITRACIN TOPICAL OINT PACKET. TP ONE (15:12)
--- NOTE | 2021-04-20 15:33 | ED.ADGEN ---
Past Medical History Past Medical History: Diabetes-Type II, Hypertension Additional Past Medical Histor: NASAL BLEED (08/2017) Past Surgical History: Knee Replacement, Tonsillectomy, Other Additional Past Surgical Histo: L knee Smoking Status: Never Smoker Alcohol Use: None Drug Use: None General Adult EDM: Chief Complaint: NOSEBLEED HPI: HPI: Patient is a 85 year old male coming in for right-sided nosebleed. Patient states he has these yearly around this time of year. Has had nasal packing in the past and silver nitrate cautery. Denies any digital trauma. Does not take any blood thinners. No other complaints. Review of Systems: Review of Systems: All other systems within normal limits except for as noted in the HPI Current Medications: Current Medications Medications (Trade) Dose Ordered Sig/Janessa Start Time Stop Time Status Last Admin Dose Admin Bacitracin (Bacitracin Zinc Oint Pkt) 1 pkt STK-MED ONCE 04/20/21 15:12 04/20/21 15:12 DC Allergies: Allergies: Allergies Coded Allergies Type Severity Reaction Last Updated Verified No Known Drug Allergies 04/12/19 No Physical Exam: PE: Constitutional: Well developed, well nourished, no acute distress, non-toxic appearance. [] HENT: Normocephalic, atraumatic, bilateral external ears normal, nose normal, bleeding from right nare. On exam bleeding appears to be coming from the upper anterior lateral side of the nare. [] Eyes: PERRLA, conjunctiva normal, no discharge. [] Neck: No rigidity, supple, no stridor. [] Cardiovascular: Regular rate and rhythm, brisk cap refill [] Lungs & Thorax: Non labored symmetric respirations, no tachypnea or respiratory distress [] Abdomen: Soft, nondistended. Skin: Warm, dry, no erythema, no rash. [] Back: Unremarkable Extremities: No deformities, range of motion grossly intact, no lower extremity edema [] Neurologic: Alert and oriented X 3, no focal deficits noted. [] Psychologic: Affect normal, judgement normal, mood normal. [] EKG: EKG: [] Heart Score: C/O Chest Pain: No Risk Factors: Risk Factors: DM, Current or recent (<one month) smoker, HTN, HLP, family history of CAD, obesity. Risk Scores: Score 0 - 3: 2.5% MACE over next 6 weeks - Discharge Home Score 4 - 6: 20.3% MACE over next 6 weeks - Admit for Clinical Observation Score 7 - 10: 72.7% MACE over next 6 weeks - Early Invasive Strategies Radiology/Procedures: Radiology/Procedures: Attempted direct pressure, bleeding slowed. Discussed nasal packing with patient he agrees with plan. Had nasal packing before tolerated well. Nasal packing procedure: Merocel trimmed to appropriate size for nare. 0 silk suture was used through the and to make a retrieval string. Merocel was lubricated with antibiotic ointment and placed in the right nare. Expanded with 3 cc sterile saline. No complications, patient tolerated well, strings taped to patient's cheek [] Course & Med Decision Making: Course & Med Decision Making Pertinent Labs and Imaging studies reviewed. (See chart for details) [] Dragon Disclaimer: Dragon Disclaimer: This electronic medical record was generated, in whole or in part, using a voice recognition dictation system. Departure Departure Impression: Primary Impression: Epistaxis Disposition: HOME / SELF CARE / HOMELESS Condition: STABLE Referrals: DARIEN CASIANO (PCP) Patient Instructions: Nosebleed Additional Instructions: Moisten the nasal packing 3 times a day until was removed can use the saline flushes or water if you run out. Follow-up with your primary care provider or ENT for pack removal in 2 to 3 days. If you do not have an ear nose and throat doctor you can follow-up with Mary Jo Carpenter MD [address], [address] [place] [address] PRECIOUS GIL MD Apr 20, 2021 15:33
== END 2021-04-20 16:10 | disposition home or self-care (01) ==
LOC: ER 14:40
DX: R04.0 Epistaxis (principal); E11.9 Type 2 diabetes mellitus without complications; I10 Essential (primary) hypertension
CPT/HCPCS: 30901; 99284

== ENCOUNTER 2021-04-20 18:21 | Emergency (ER) | payer MEDICARE, OTHER ==
[~2021-04-20] VITALS: Ht 175.3 cm; Wt 90.9 kg
[2021-04-20 18:55] VITALS: BP 164/70
[2021-04-20] MEDS ORDERED: OXYMETAZOLINE 0.05% NASAL SPRAY 30ML BOTTLE. NS ONE (19:45)
[2021-04-20] MEDS ORDERED: BACITRACIN TOPICAL OINT PACKET. TP ONE (19:45)
[2021-04-20] MEDS ORDERED: 0.9 % SOD CHL for STERILE FIELD 10 ML DISP.SYRIN. ONE (20:06)
[2021-04-20] MEDS ORDERED: 0.9 % SOD CHL for STERILE FIELD 10 ML DISP.SYRIN. IV ONE (20:15)
--- NOTE | 2021-04-20 20:43 | PHYS DOC ---
Past Medical History Past Medical History: Diabetes-Type II, Hypertension Additional Past Medical Histor: NASAL BLEED (08/2017) Past Surgical History: Knee Replacement, Tonsillectomy, Other Additional Past Surgical Histo: L knee Smoking Status: Never Smoker Alcohol Use: None Drug Use: None General Adult EDM: Chief Complaint: NOSEBLEED HPI: HPI: Patient is a 85-year-old male presents to the emergency department concerning ongoing nosebleeding. Patient states he was here earlier and had a packing placed in his nose, patient states he does not feel as if it is working, would like a reevaluation. Review of Systems: Review of Systems: 14 body systems of review of systems have been reviewed. See HPI for pertinent positives and negative responses, otherwise all other systems are negative, nonpertinent or noncontributory. Constitutional: Negative except as outlined in HPI above. Skin: Negative except as outlined in HPI above. Eyes: Negative except as outlined in HPI above. HENT: Negative except as outlined in HPI above. Respiratory: Negative except as outlined in HPI above. Cardiovascular: Negative except as outlined in HPI above. GI: Negative except as outlined in HPI above. : Negative except as outlined in HPI above. Musculoskeletal: Negative except as outlined in HPI above. Integument: Negative except as outlined in HPI above. Neurologic: Negative except as outlined in HPI above. Endocrine: Negative except as outlined in HPI above. Lymphatic: Negative except as outlined in HPI above. Psychiatric: Negative except as outlined in HPI above. Heart Score: C/O Chest Pain: No Risk Factors: Risk Factors: DM, Current or recent (<one month) smoker, HTN, HLP, family history of CAD, obesity. Risk Scores: Score 0 - 3: 2.5% MACE over next 6 weeks - Discharge Home Score 4 - 6: 20.3% MACE over next 6 weeks - Admit for Clinical Observation Score 7 - 10: 72.7% MACE over next 6 weeks - Early Invasive Strategies Current Medications: Current Medications Medications (Trade) Dose Ordered Sig/Janessa Start Time Stop Time Status Last Admin Dose Admin Bacitracin (Bacitracin Zinc Oint Pkt) 1 pkt 1X ONCE 04/20/21 19:45 04/20/21 19:46 DC 04/20/21 19:47 1 PKT Oxymetazoline HCl (Afrin) 2 spray 1X ONCE 04/20/21 19:45 04/20/21 19:46 DC 04/20/21 19:46 2 SPRAY Sodium Chloride (NORMAL SALINE FLUSH for STERILE FIELD) 20 ml 1X ONCE 04/20/21 20:15 04/20/21 20:16 DC 04/20/21 20:15 20 ML Allergies: Allergies: Allergies Coded Allergies Type Severity Reaction Last Updated Verified No Known Drug Allergies 04/12/19 No Physical Exam: PE: Constitutional: Well developed, well nourished, no acute distress, non-toxic appearance. 85-year-old male in no apparent distress. HENT: Normocephalic, atraumatic. Sponge type packing in left nare, no bleeding noted anteriorly, scant post nasal bright red blood oozing, no clots appreciated Eyes: Conjunctiva normal, no discharge. Neck: Normal range of motion, no stridor. Cardiovascular: No cyanosis appreciated, distal cap refill less than 2 seconds. Lungs & Thorax: Patient is in no respiratory distress, no audible adventitious lung sounds appreciated. Abdomen: Nontender, no abnormalities noted. Skin: Warm, dry, no erythema, no rash. Back: No tenderness, no deformities. Extremities: No tenderness, no cyanosis, no clubbing, ROM intact, no edema. Neurologic: Alert and oriented X 3, normal motor function, normal sensory function, no focal deficits noted. Psychologic: Affect normal, judgement normal, mood normal. Current Patient Data: Vital Signs: Vital Signs Date Time Temp Pulse Resp B/P (MAP) Pulse Ox O2 Delivery O2 Flow Rate FiO2 04/20/21 18:55 98.3 61 16 164/70 (101) 96 Room Air 98.3 EKG: EKG: [] Radiology/Procedures: Radiology/Procedures: [] Course & Med Decision Making: Course & Med Decision Making Pertinent Labs and Imaging studies reviewed. (See chart for details) 85-year-old male, vital signs reviewed, presents emergency department concerning a reevaluation of his nasal packing. Physical presentation unremarkable, patient is unsatisfied with nasal packing and would like a different type. Discussed risks and benefits of continual disruption of nasal packing. Patient have a joint decision to remove nasal packing in place Rhino Rocket. Nasal packing removed without incident, 7.5 cm Rhino Rocket placed, patient tolerated well, no bleeding noted after procedure, patient given instructions for Rhino Rocket placement, strict follow-up with ENT on Friday, patient reports he has appointment to see Dr. Mandy Carpenter this coming Friday. Discussed with the patient all findings and diagnostic testing as well as the need to follow-up with their primary care provider for further evaluation and treatment or return to the ED if any new or worsening symptoms. Strict return precautions were also discussed at length, the patient voiced understanding and agreement with the discharge planning. The patient was nontoxic in appearance, in no apparent distress, and hemodynamically stable at the time of disposition. Dragon Disclaimer: Dragon Disclaimer: This electronic medical record was generated, in whole or in part, using a voice recognition dictation system. Departure Departure Impression: Primary Impression: Epistaxis Disposition: HOME / SELF CARE / HOMELESS Condition: GOOD Referrals: DARIEN CASIANO (PCP) WESTLEY CARPENTER MD Patient Instructions: Nosebleed Additional Instructions: You were seen today in the emergency department for nosebleed. A Rhino Rocket was placed to help stop the bleeding. After a 30-minute wait an observation time, there was no bleeding noted. You and I have made a joint decision for discharge to home. Please follow-up with your ENT specialist Dr. Carpenter this Friday as planned. Thank you for visiting our Emergency Department. It was a pleasure taking care of you today in the emergency department and we appreciate you trusting us with your care. If any additional problems come up don't hesitate to return to visit us. Please follow up with your primary care provider so they can plan additional care if needed and know about the problem that you had. If symptoms worsen come back to the Emergency Department. Any concerning symptoms that start such as chest pain, shortness of air, weakness or numbness on one side of the body, running high fevers or any other concerning symptoms return to the ER. AYUSH BECERRA APRN Apr 20, 2021 20:43
== END 2021-04-20 20:57 | disposition home or self-care (01) ==
LOC: ER 18:21
DX: R04.0 Epistaxis (principal); E11.9 Type 2 diabetes mellitus without complications; I10 Essential (primary) hypertension
CPT/HCPCS: 30901; 96374; 99284